=== PATIENT | male | born 1995 | race Caucasian/White ===

== ENCOUNTER 2023-03-23 13:34 | Emergency (ER) | payer OTHER, SELFPAY ==
[2023-03-23 13:42] VITALS: BP 149/93; PULSE 117; RESP 16; TEMP 36.7; O2SAT 98; BMI 32.8
--- NOTE | 2023-03-23 13:53 | ED_ITS ---
HPI - Wound/Laceration General: Chief Complaint: Wound/Laceration Stated Complaint: laceration above lip Time Seen by Provider: 03/23/23 13:52 Source: patient Mode of arrival: ambulatory Limitations: no limitations History of Present Illness: Patient is a 28-year-old male who presents to ED today for evaluation of a lip laceration. Patient states he was at work when a piece of the equipment came back and struck him in the lip. Tetanus is up-to-date. No other injuries or complaints at this time. No intraoral or dental injuries. Onset (ago): hour(s) Location: face Place: work Patient tetanus UTD: Yes Context: accidental Associated symptoms: Reports no associated symptoms Review of Systems ENMT: Reports: other (L upper lip laceration); Denies: dental pain Skin/Breast: Reports: other (laceration) Neuro: Denies: headache(s) Physical Exam Const: COMMON NORMALS: no acute distress, average body habitus, patient oriented x3, no limitations, healthy appearing, alert and well nourished HENMT: COMMON NORMALS: Normal external nose present FACE & SINUS IMAGES: 1. small 1.5cm superficial laceration; no through and through; no dental/intraoral injuries noted NOSE: Normal external nose present Neuro: COMMON NORMALS: patient oriented x3 SENSORIUM/ORIENTATION: Yes alert Procedures Laceration Laceration 1: Site: face and lip Side (If applicable): left Size (cm): 1.5 Description: linear Depth: simple, single layer Local Anesthetic: lidocaine 1% and with epi Amount of anesthesia used (mL): 1.0 Pre-repair: wound explored and irrigated extensively Skin layer closed with: nylon Size (cm): 6-0 Number of sutures: 4 Technique: simple, interrupted Course Vital Signs: Vital signs: Vital Signs Temperature 98.1 F 03/23/23 13:42 Pulse Rate 117 H 03/23/23 13:42 Respiratory Rate 16 03/23/23 13:42 Blood Pressure 149/93 03/23/23 13:42 Pulse Oximetry 98 03/23/23 13:42 MDM - Wound/Laceration Medical Decision Making Wound copiously irrigated and repaired as documented. Tetanus was up-to-date. He will follow-up with Worker's Comp. as directed. No radiology studies performed this visit Discharge Plan Discharge Patient Disposition: Home Clinical Impression: Laceration of lip Qualifiers: Encounter type: initial encounter Qualified Code(s): S01.511A - Laceration without foreign body of lip, initial encounter Condition: Stable Discharge Orders: Discharge ED (Routine); Ordered 03/23/23 Ordered By: Hawa Thompson Patient Instructions: Care For Your Stitches (DC), Laceration (DC), Facial Laceration (ED) Activity Restrictions/Additional Instructions: Keep wound/laceration clean with warm soap and water twice daily. Monitor for signs of infection such as redness, swelling, increased pain, or drainage. Please seek medical re-evaluation if these occur. If you received sutures today these will need to be removed (unless you were told by the provider that they are absorbable). The provider should have discussed with you the length of time until removal-5 days. You may return to the emergency department for this service. Coding Level of Care Code ED Compliance Representative Dealer for Nisreen Regan
[2023-03-23] MEDS: lidocaine-epi 1% 20 mL INJ INJECTION (14:10)
[2023-03-23 14:25] VITALS: RESP 16
== END 2023-03-23 14:26 | disposition home or self-care (01) ==
PROVIDERS: Emergency Provider Physician Assistant
DX: S01.511A Laceration without foreign body of lip, initial encounter (principal); W20.8XXA Other cause of strike by thrown, projected or falling object, initial encounter
CPT/HCPCS: 12011; 99282